=== PATIENT | male | born 1955 | race Caucasian/White ===

== ENCOUNTER → 2017-08-14 | Outpatient (CLI) | payer BC ==
--- NOTE | 2017-08-14 15:01 | MR ---
EXAMINATION TYPE: MR lumbar spine wo con DATE OF EXAM: 08/14/2017 COMPARISON: NONE HISTORY: 62-year-old male back pain TECHNIQUE: Multiplanar, multisequence images of the lumbar spine were acquired. Findings: Vertebral body heights are preserved and alignment is maintained. Variable mild to moderate intervertebral disc desiccation throughout. Mild disc space narrowing L4-L5 and L5-S1 with bulging discs. There is a posterior annular fissure at L5-S1. Facet arthropathy lower lumbar spine. Conus medullaris is normal. No suspicious bone marrow replacement. At T12-L1, no canal or foraminal stenosis. At L1-L2, no canal or foraminal stenosis. At L2-L3, there is mild diffuse disc bulge without significant canal or foraminal stenosis. At L3-L4, no significant canal or foraminal stenosis. At L4-L5, there is mild diffuse disc bulge with facet degenerative change. There is minimal inferior neural foraminal narrowing on the right. No spinal canal stenosis. Disc material closely approaches t he traversing left L5 nerve root. At L5-S1, there is diffuse disc bulge with superimposed right base central disc protrusion and facet degenerative change. Posterior annular fissure is present. This material may abut the traversing righ t S1 nerve root and closely approaches the traversing left S1 nerve root. Changes result in mild to m oderate left and mild right neuroforaminal stenosis. No spinal canal stenosis. No prevertebral or paravertebral soft tissue abnormality. IMPRESSION: 1. [id number] degenerative disc disease. Additional facet arthropathy lower lumbar spine. There is a posterior annular fissure at L5-S1. 2. At L4-L5, disc material closely approaches the traversing left L5 nerve root. 3. At L5-S1, disc material may abut the traversing right S1 nerve root and closely approaches the tra versing left S1 nerve root. There is mild to moderate left neuroforaminal stenosis at this level. 4. No canal compromise.
== END | disposition home or self-care (01) ==
LOC: RADMRIMAIN 12:54
PROVIDERS: ATTEND Family Medicine
DX: M99.73 Connective tissue and disc stenosis of intervertebral foramina of lumbar region (principal); M51.36 Other intervertebral disc degeneration, lumbar region; M46.96 Unspecified inflammatory spondylopathy, lumbar region
CPT/HCPCS: 72148

== ENCOUNTER → 2017-08-26 | Outpatient (CLI) | payer BC ==
[2017-08-26 15:18] LABS: Basophils % (A) 0 %; Eosinophils # (A) 0.3 k/uL (0-0.7); Eosinophils % (A) 3 %; HCT 47.3 % (39.0-53.0); HGB 15.4 gm/dL (13.0-17.5); Lymphocytes % (A) 35 %; MCH 30.3 pg (25.0-35.0); MCHC 32.6 g/dL (31.0-37.0); MCV 92.9 fL (80.0-100.0); Mean Platelet Volume 7.6; Monocytes # (A) 0.5 k/uL (0-1.0); Monocytes % (A) 6 %; Neutrophils # (A) 4.8 k/uL (1.3-7.7); Neutrophils % (A) 55 %; Platelet Count 252 k/uL (150-450); RBC 5.09 m/uL (4.30-5.90); WBC 8.6 k/uL (3.8-10.6)
[2017-08-26 15:20] LABS: Appearance,Urine Clear (Clear); Bilirubin,Urine Negative (Negative); Blood,Urine Negative (Negative); Color,Urine Colorless; Glucose,Urine (UA) 4+ (Negative); Ketones,Urine Negative (Negative); Leukocyte Esterase,Urine Negative (Negative); Protein,Urine Negative (Negative); Specific Gravity,Urine 1.001 (1.001-1.035); Urobilinogen,Urine <2.0 mg/dL (<2.0)
[2017-08-26 15:26] LABS: INR 0.9 (<1.2); Partial Thromboplastin Time 22.4 sec (22.0-30.0); Prothrombin Time 9.4 sec (9.0-12.0)
[2017-08-26 15:39] LABS: Anion Gap 12 mmol/L; Blood Urea Nitrogen 11 mg/dL (9-20); Carbon Dioxide 28 mmol/L (22-30); Chloride 98 mmol/L (98-107); Glucose 279 mg/dL (74-99); Potassium 4.7 mmol/L (3.5-5.1); Sodium 138 mmol/L (137-145)
== END | disposition home or self-care (01) ==
LOC: LABPAT 14:38
PROVIDERS: ATTEND Surgery
DX: Z01.812 Encounter for preprocedural laboratory examination (principal); I70.213 Atherosclerosis of native arteries of extremities with intermittent claudication, bilateral legs
CPT/HCPCS: 80051; 81003; 82565; 82947; 84520; 85025; 85610; 85730

== ENCOUNTER → 2017-09-09 | Day surgery (SDC) | payer BC ==
[2017-09-04 15:49] VITALS: BMI 25.0
[~2017-09-09] MED LIST: ASPIRIN 325 MG TAB PO STA; IODIXANOL 320 MG/ML 100 ML INTRAARTER ONE; LIDOCAINE 2% INJ 20 MG/ML SQ ONE; MIDAZOLAM 2 MG/2 ML VIAL IV ONE; MORPHINE SULFATE 4 MG/ML SYRINGE IV ONE; SODIUM CHLORIDE 0.9% 1,000 ML IV SCH; SODIUM CHLORIDE 0.9% 1,000 ML in EMPTY BAG 1 BAG IV ONE
[2017-09-09] MEDS: INSULIN ASPART 100 UNIT/ML 1 ML 10 ML VIAL SQ SCH ×2 (07:10→09:23)
[2017-09-09 08:48] LABS: Glucose,Whole Blood 254 mg/dL (75-99)
[2017-09-09 09:12] VITALS: TEMP 98
[2017-09-09 09:24] LABS: Glucose,Whole Blood 228 mg/dL (75-99)
[2017-09-09 14:05] VITALS: RESP 20
[2017-09-09 15:29] VITALS: BP 119/70; PULSE 110
--- NOTE | 2017-09-13 06:28 | P.OP ---
Date of Procedure: 09/09/17 Preoperative Diagnosis: Disabling claudication Cr 3 Postoperative Diagnosis: 1. 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 Bilateral anterior tibial artery occlusion Procedure(s) Performed: aortogram with lower extremity runoffs via left common femoral artery and left brachial artery access under ultrasound guidance Implants: none Anesthesia: MAC, local Surgeon: Reed Patiño Estimated Blood Loss (ml): 5 Pathology: none sent Condition: stable Disposition: PACU Indications for Procedure: 62 year-old male who presented to the office with complaints of pain with ambulation. Patient states unable to ambulate more than 100 feet without having increased pain at the hips and lower extremities. He underwent arterial doppler which demonstrated STEPHANIA's of 0.66 bilaterally. He presents today for aortogram with lower extremity angiogram. Operative Findings: Aorta: ledge of calcification noted mid infra-renal aorta causing nearly 100% occlusion. Renal: bilateral renal arteries are patent without significant disease Iliac: left common iliac artery demonstrates significant calcification and stenosis of 60-70%, right common iliac is diseased without significant stenosis. bilateral internal iliac arteries are patent with some mild athersclerotic disease. Femoral: bilateral common, deep and superficial femoral arteries have mild athersclerotic disease without significant stenosis Popliteal: bilateral popliteal arteries are patent without significant disease Tibials: bilateral one vessel runoff to the ankle which is the posterior tibial artery. bilateral anterior tibial arteries are occluded half way down the lower leg after the takeoff. Description of Procedure: After written and informed consent was obtained and all risks, benefits, and complications were described the patient was brought to the casting house laborer and laid in a supine position. The area of the groins were prepped and draped in the usual sterile fashion. Timeout was performed in usual fashion. Utilizing ultrasound the femoral arteries were visualized. The right femoral artery had a weak pulse and therefore access was obtained via the left femoral artery. Utilizing ultrasound and a multipurpose needle the left femoral artery was cannulated. Using Seldinger technique a 5 telugu sheath was placed. We attempted to place a wire in the aorta but encountered difficulty. Retrograde angiogram was performed and demonstrated a focal aortic occlusion. Multiple attempts to cross the area were performed without success and therefore the left arm was prepped and draped for brachial access. Utilizing ultrasound the brachial artery was visualized and then cannulated with a multipurpose needle. A 5 telugu sheath was then placed utilizing Seldinger technique. An .035 glidwire along with a pigtail catheter were then used to place the catheter in the aorta above the area of occlusion. Aortogram was obtained followed by bilateral lower extremity angiograms. Due to the near occlusion multiple views were obtained that demonstrated a severe narrowing around two calcific ledges. A glidewire was able to be passed across the lesion which proved it was not occlusive. All wires and sheaths were removed and pressure was held for hemostasis. The patient tolerated the procedure well.
--- NOTE | 2017-09-13 10:26 | IR ---
Fluoroscopy HISTORY: Peripheral vascular occlusive disease 6.3 minutes fluoroscopy time supplied to the referring clinician. 210 intraoperative C-arm images do cument the procedure. See dictated report from vascular surgery.
== END ==
LOC: CATHCVL 06:26
PROVIDERS: ATTEND Surgery
DX: I70.213 Atherosclerosis of native arteries of extremities with intermittent claudication, bilateral legs (principal); I70.0 Atherosclerosis of aorta; Z79.4 Long term (current) use of insulin; Z79.899 Other long term (current) drug therapy; F17.210 Nicotine dependence, cigarettes, uncomplicated
CPT/HCPCS: 36200; 75625; 75716; C1769 ×4; C1894 ×2; J2001; J2250; J2270; Q9967

== ENCOUNTER → 2017-10-28 | Outpatient (CLI) | payer BC ==
[2017-10-28 16:19] LABS: Appearance,Urine Clear (Clear); Basophils % (A) 0 %; Bilirubin,Urine Negative (Negative); Blood,Urine Negative (Negative); Color,Urine Colorless; Eosinophils # (A) 0.3 k/uL (0-0.7); Eosinophils % (A) 4 %; Glucose,Urine (UA) Negative (Negative); HCT 46.3 % (39.0-53.0); HGB 15.7 gm/dL (13.0-17.5); Ketones,Urine Negative (Negative); Leukocyte Esterase,Urine Negative (Negative); Lymphocytes % (A) 35 %; MCH 30.7 pg (25.0-35.0); MCHC 33.8 g/dL (31.0-37.0); MCV 90.7 fL (80.0-100.0); Monocytes # (A) 0.4 k/uL (0-1.0); Monocytes % (A) 5 %; Neutrophils # (A) 4.8 k/uL (1.3-7.7); Neutrophils % (A) 55 %; Nitrite,Urine Negative (Negative); Platelet Count 257 k/uL (150-450); Protein,Urine Negative (Negative); RDW 13.2 % (11.5-15.5); Specific Gravity,Urine 1.003 (1.001-1.035); Urobilinogen,Urine <2.0 mg/dL (<2.0); WBC 8.8 k/uL (3.8-10.6)
[2017-10-28 16:27] LABS: Partial Thromboplastin Time 22.9 sec (22.0-30.0); Prothrombin Time 9.5 sec (9.0-12.0)
[2017-10-28 16:31] LABS: Anion Gap 15 mmol/L; Blood Urea Nitrogen 14 mg/dL (9-20); Carbon Dioxide 23 mmol/L (22-30); Chloride 102 mmol/L (98-107); Glucose 100 mg/dL (74-99); Potassium 4.4 mmol/L (3.5-5.1); Sodium 140 mmol/L (137-145)
== END | disposition home or self-care (01) ==
LOC: LABPAT 15:54
PROVIDERS: ATTEND Surgery
DX: Z01.812 Encounter for preprocedural laboratory examination (principal); I74.5 Embolism and thrombosis of iliac artery
CPT/HCPCS: 36415; 80051; 81003; 82565; 82947; 84520; 85025; 85610; 85730

== ENCOUNTER → 2017-11-04 | Day surgery (SDC) | payer BC ==
[2017-10-29 09:21] VITALS: BMI 25.8
[~2017-11-04] MED LIST changes: +ASPIRIN 325 MG TAB ONE; -ASPIRIN 325 MG TAB PO STA; -IODIXANOL 320 MG/ML 100 ML INTRAARTER ONE; +LACTATED RINGERS 1,000 ML IV SCH; +LIDOCAINE 1% 20 ML VIAL (10MG/ML) FOR IV START INTRADERMA PRN; -LIDOCAINE 2% INJ 20 MG/ML SQ ONE; -MIDAZOLAM 2 MG/2 ML VIAL IV ONE; +MIDAZOLAM 2 MG/2 ML VIAL ONE; -MORPHINE SULFATE 4 MG/ML SYRINGE IV ONE; +ONDANSETRON 4 MG/2 ML VIAL IVP PRN; -SODIUM CHLORIDE 0.9% 1,000 ML IV SCH; +fentaNYL (PF) 50 MCG/ML 2 ML AMP IV PRN
[2017-11-04 11:27] VITALS: BP 123/72; PULSE 97; TEMP 97.7
[2017-11-04 11:34] LABS: Glucose,Whole Blood 101 mg/dL (75-99)
== END ==
LOC: UNDOADMIN 10:49 → CATHCVL 10:49 → 2ORMAIN 10:49 → EDSTATUS 12:30
PROVIDERS: ATTEND Surgery
DX: I74.5 Embolism and thrombosis of iliac artery (principal); Z53.8 Procedure and treatment not carried out for other reasons; Z91.041 Radiographic dye allergy status; I10 Essential (primary) hypertension; E78.5 Hyperlipidemia, unspecified; E11.9 Type 2 diabetes mellitus without complications; Z79.4 Long term (current) use of insulin; F17.210 Nicotine dependence, cigarettes, uncomplicated; Z79.891 Long term (current) use of opiate analgesic; Z79.899 Other long term (current) drug therapy
CPT/HCPCS: 86900 ×2; 86901 ×2; 86850 ×2; J2250; J3010

== ENCOUNTER 2017-11-12 08:24 | Inpatient (IN) | payer BC ==
[2017-11-10 12:00] VITALS: BMI 25.3
[~2017-11-12 08:24] MED LIST changes: +ALPRAZolam 0.25 MG TAB PO PRN; -ASPIRIN 325 MG TAB ONE; +ASPIRIN 325 MG TAB PO STA; +DEXAMETHASONE SOD PHOSPHATE 10 MG/ML 1 ML VIAL IV ONE; -MIDAZOLAM 2 MG/2 ML VIAL ONE; +MORPHINE SULFATE 4 MG/ML SYRINGE IV PRN; +ONDANSETRON 4 MG/2 ML VIAL IVP ONE; -ONDANSETRON 4 MG/2 ML VIAL IVP PRN; +SCOPOLAMINE 1.5MG/72HR PATCH TRANSDERM ONE; -fentaNYL (PF) 50 MCG/ML 2 ML AMP IV PRN
[2017-11-12] MEDS ORDERED: DEXTROSE 50%-WATER 50 ML SYRINGE IVP STA (09:06)
[2017-11-12 09:23] LABS: Glucose,Whole Blood 127 mg/dL (75-99)
[2017-11-12 09:23] LABS: Glucose,Whole Blood 60 mg/dL (75-99)
[2017-11-12] MEDS ORDERED: MIDAZOLAM 2 MG/2 ML VIAL IVP ONE (09:41)
[2017-11-12] MEDS ORDERED: fentaNYL (PF) 50 MCG/ML 2 ML AMP IVP ONE (09:42)
[2017-11-12] MEDS ORDERED: diphenhydrAMINE 50 MG/ML 1 ML VIAL IVP STA (10:04)
[2017-11-12] MEDS ORDERED: methylPREDNISolone SOD SUCCI 125 MG/2 ML VIAL IV STA (10:04)
[2017-11-12] MEDS ORDERED: PROTAMINE SULFATE 10 MG/ML 5 ML VIAL IV ONE (10:12)
[2017-11-12] MEDS ORDERED: PROPOFOL 10 MG/ML 20 ML VIAL IV ONE (10:12)
[2017-11-12] MEDS ORDERED: SUCCINYLCHOLINE CHLORIDE 100 MG/5 ML SYR IV ONE (10:12)
[2017-11-12] MEDS ORDERED: HEPARIN SODIUM,PORCINE 5,000 UNIT/ML 1 ML VIAL ONE (10:12)
[2017-11-12] MEDS ORDERED: fentaNYL (PF) 50 MCG/ML 2 ML AMP ONE (10:12)
[2017-11-12] MEDS ORDERED: ePHEDrine SULFATE/0.9% NACL/PF 50 MG/5 ML SYRINGE IV ONE (10:12)
[2017-11-12] MEDS ORDERED: PHENYLEPHRINE-0.9% NACL SYG 1 MG/10 ML SYRINGE ONE (10:12)
[2017-11-12] MEDS ORDERED: MIDAZOLAM 2 MG/2 ML VIAL ONE (10:12)
[2017-11-12 10:34] LABS: Glucose,Whole Blood 84 mg/dL (75-99)
[2017-11-12] MEDS ORDERED: LIDOCAINE 2% INJ 20 MG/ML SQ ONE (10:46)
[2017-11-12] MEDS ORDERED: IOPAMIDOL-250 100ML BTL INTRAARTER ONE (12:56)
[2017-11-12] MEDS ORDERED: HYDROcodone/APAP 5-325MG 1 EACH TAB PO PRN (13:15)
[2017-11-12 13:55] LABS: Glucose,Whole Blood 76 mg/dL (75-99)
[2017-11-12] MEDS: SODIUM CHLORIDE 0.9% 1,000 ML IV SCH (14:50)
[2017-11-12 15:11] LABS: Basophils % (A) 0 %; Eosinophils # (A) 0.1 k/uL (0-0.7); Eosinophils % (A) 0 %; HCT 41.9 % (39.0-53.0); HGB 13.5 gm/dL (13.0-17.5); Lymphocytes % (A) 7 %; MCH 30.6 pg (25.0-35.0); MCHC 32.2 g/dL (31.0-37.0); MCV 94.9 fL (80.0-100.0); Mean Platelet Volume 6.8; Monocytes # (A) 0.2 k/uL (0-1.0); Monocytes % (A) 1 %; Neutrophils # (A) 13.8 k/uL (1.3-7.7); Neutrophils % (A) 91 %; Platelet Count 196 k/uL (150-450); RBC 4.42 m/uL (4.30-5.90); RDW 13.4 % (11.5-15.5); WBC 15.1 k/uL (3.8-10.6)
[2017-11-12 15:15] LABS: Anion Gap 13 mmol/L; Blood Urea Nitrogen 14 mg/dL (9-20); Carbon Dioxide 22 mmol/L (22-30); Chloride 109 mmol/L (98-107); Glucose 76 mg/dL (74-99); Potassium 4.2 mmol/L (3.5-5.1); Sodium 144 mmol/L (137-145)
[2017-11-12 17:23] LABS: Glucose,Whole Blood 79 mg/dL (75-99)
[2017-11-12] MEDS ORDERED: HEPARIN SODIUM,PORCINE 5,000 UNIT/ML 1 ML VIAL IV PRN (18:30)
[2017-11-12] MEDS ORDERED: HEPARIN SODIUM,PORCINE/D5W PMX 25,000 UNIT in DEXTROSE/WATER 1 500ML.BAG IV SCH (18:30)
[2017-11-12] MEDS ORDERED: HEPARIN SODIUM,PORCINE 5,000 UNIT/ML 1 ML VIAL IV ONE (18:30)
[2017-11-12 18:51] LABS: Basophils % (A) 0 %; Eosinophils # (A) 0.1 k/uL (0-0.7); Eosinophils % (A) 1 %; HGB 13.4 gm/dL (13.0-17.5); Lymphocytes # (A) 0.7 k/uL (1.0-4.8); Lymphocytes % (A) 5 %; MCH 30.8 pg (25.0-35.0); MCHC 33.5 g/dL (31.0-37.0); MCV 92.1 fL (80.0-100.0); Mean Platelet Volume 7.3; Monocytes # (A) 0.2 k/uL (0-1.0); Monocytes % (A) 2 %; Neutrophils # (A) 12.6 k/uL (1.3-7.7); Neutrophils % (A) 92 %; Platelet Count 222 k/uL (150-450); RBC 4.34 m/uL (4.30-5.90); RDW 13.4 % (11.5-15.5); WBC 13.6 k/uL (3.8-10.6)
[2017-11-12 19:30] LABS: Partial Thromboplastin Time 22.6 sec (22.0-30.0); Prothrombin Time 9.6 sec (9.0-12.0)
[2017-11-12 20:44] LABS: Glucose,Whole Blood 143 mg/dL (75-99)
[2017-11-12] MEDS: INSULIN ASPART 100 UNIT/ML 1 ML 10 ML VIAL SQ SCH (21:00)
[2017-11-12] MEDS ORDERED: ASPIRIN 81 MG PO SCH (21:00)
[2017-11-12] MEDS ORDERED: INSULIN DETEMIR 100 UNIT/ML 10 ML VIAL SQ SCH (21:00)
[2017-11-12] MEDS ORDERED: LISINOPRIL 2.5 MG TAB PO SCH (21:00)
[2017-11-12] MEDS ORDERED: amLODIPine 5 MG TAB PO SCH (21:00)
[2017-11-12] MEDS ORDERED: PRAVASTATIN SODIUM 40 MG TAB PO SCH (21:00)
--- NOTE | 2017-11-12 22:09 | P.OP ---
Date of Procedure: 11/12/17 Preoperative Diagnosis: 1. Aortic Occlusive Disease 2. Lower extremity claudication with rest pain [place] classification 4 Postoperative Diagnosis: Same Procedure(s) Performed: Endovascular Aortic stent graft with AFX 2 device Implants: Endologix AFX 2 aortic device Anesthesia: LJA Surgeon: Reed Patiño Estimated Blood Loss (ml): 200 Pathology: none sent Condition: stable Disposition: ICU Indications for Procedure: 62 year-old gentleman who initially presented to the office with complaints of lower extremity pain both at the thighs extending down to his feet. He states having pain at night in his calves. He states only being able to ambulate 100 feet without pain and fatigue in his legs. He underwent angiogram which showed an aortic occlusive disease with stenosis of 90% and left common iliac artery athersclerotic disease. He presents today for aortic stent graft. Operative Findings: Aortic stenosis of >90% and severe athersclerotic disease of bilateral common iliac arteries. Description of Procedure: After written and informed consent was obtained from the patient and all risks, benefits, and complications were described the patient was brought to the labor relations worker and laid in a supine position. The area of the groins were prepped and draped in the usual sterile fashion after appropriate anesthesia was performed per the anesthesiologist. A timeout was done in usual fashion with all parties in agreement. Antibiotics were given prior to the procedure. Utilizing ultrasound bilateral common femoral arteries were accessed and using Seldinger technique two 6F sheaths were placed. A retrograde angiogram was obtained and using an .035 glidewire the aortic lesion was crossed. Once crossed Proglide closure device was then placed in the right femoral artery in usual fashion followed by an 8F sheath. A stiff Lunderquist wire was then place across the lesion. The left femoral sheath was then replaced with a long 7F sheath. The patient was given heparin and followed with serial ACTs. The Endologix main body sheath was then placed through the right femoral artery after the 8F sheath was removed. A snare was placed up the right femoral sheath. The main body AFX 2 deployment device was then placed up the right femoral sheath. Multiple attempts to snare the wire from the AFX device were not successful and therefore an RBI catheter was used to go up and over and a wire was snared at the left iliac artery and brought out the left femoral sheath in a body floss technique. A catheter was then placed over the wire and the up and over wire from the AFX 2 device was threaded through the sheath. Once this was completed the AFX 2 stent graft was deployed in normal fashion across the lesion. After completion balloon angioplasty was performed on the limbs and main body with a Coda balloon and 8x40mm balloons. Pigtail catheter was then placed and final angiogram was performed with resolution of the aortic lesion and brisk flow to both lower extremities. All catheters were removed and glidewires were left in place. Proglide sutures were secured for the right femoral artery and an 8F angioseal was placed in the left femoral artery for hemostasis. Hemostasis was achieved and patient was multiphasic signals at bilateral DP/PT. Palpable femoral pulses were noted bilaterally.
--- NOTE | 2017-11-12 22:14 | P.PN ---
Progress Note - Text Progress Note Date: 11/12/17 Patient was seen and examined at 6:00 pm. He was doing well. Stated having some pain at his right calf which is unchanged from prior to the surgery. He has no other complaints. Nursing staff states unable to obtain signals right DP /PT with doppler. Vitals are stable. He is moving feet well without pain. Upon examination patient has palpable femoral, popliteal pulses bilaterally. There is palpable PT pulse on the left. Multiphasic doppler signal at the right PT. Due to the size of the sheath and potential for thrombosis patient was placed on a heparin drip. We will continue to monitor closely. He is to continue to move his feet and when able to get out of bed he is to ambulate with assist.
[2017-11-13 05:16] LABS: Basophils % (A) 0 %; Eosinophils # (A) 0.1 k/uL (0-0.7); Eosinophils % (A) 1 %; HCT 37.3 % (39.0-53.0); HGB 12.4 gm/dL (13.0-17.5); Lymphocytes % (A) 14 %; MCH 30.7 pg (25.0-35.0); MCHC 33.2 g/dL (31.0-37.0); MCV 92.4 fL (80.0-100.0); Mean Platelet Volume 7.5; Monocytes # (A) 0.7 k/uL (0-1.0); Monocytes % (A) 5 %; Neutrophils # (A) 11.5 k/uL (1.3-7.7); Neutrophils % (A) 80 %; Platelet Count 222 k/uL (150-450); RBC 4.04 m/uL (4.30-5.90); RDW 13.3 % (11.5-15.5); WBC 14.4 k/uL (3.8-10.6)
[2017-11-13 06:46] LABS: Anion Gap 10 mmol/L; Blood Urea Nitrogen 15 mg/dL (9-20); Calcium 8.5 mg/dL (8.4-10.2); Carbon Dioxide 22 mmol/L (22-30); Chloride 107 mmol/L (98-107); Glucose 155 mg/dL (74-99); Magnesium 1.9 mg/dL (1.6-2.3); Potassium 4.6 mmol/L (3.5-5.1); Sodium 139 mmol/L (137-145)
[2017-11-13 07:15] LABS: Glucose,Whole Blood 155 mg/dL (75-99)
--- NOTE | 2017-11-13 07:48 | P.CONS ---
History of Present Illness - Reason for Consult Consult date: 11/13/17 Requesting physician: Reed Patiño - Chief Complaint Postop medical management. - History of Present Illness This is a continue progress on a 62-year-old white male who has known history of insulin dependent diabetes and PAD who is now postop day #1 aortofemoral stent. The patient is doing quite well. Minimal pain is noted. No significant nausea or vomiting. We had a long discussion regarding tobacco cessation. Otherwise, he has an underlying history of hypertension which is fairly stable. We reiterated good blood glucose control at home. Review of Systems Constitutional: Denies chills, Denies fever Eyes: denies blurred vision, denies pain Ears, nose, mouth and throat: Denies headache, Denies sore throat Cardiovascular: Reports claudication, Denies chest pain, Denies shortness of breath Respiratory: Denies cough Gastrointestinal: Denies abdominal pain, Denies diarrhea, Denies nausea, Denies vomiting Past Medical History Past Medical History: Diabetes Mellitus, Hyperlipidemia, Hypertension, Osteoarthritis (OA), Renal Disease, Vascular Disorder Additional Past Medical History / Comment(s): back pain,numbness & pain legs,hx decreased kidney function History of Any Multi-Drug Resistant Organisms: None Reported Past Surgical History: Breast Surgery, Heart Catheterization Additional Past Surgical History / Comment(s): lump removed from left breast 2017,aortogram Past Anesthesia/Blood Transfusion Reactions: No Reported Reaction Smoking Status: Current every day smoker - Past Family History Father Family Medical History: Cancer Medications and Allergies Home Medications Medication Instructions Recorded Confirmed Type Aspirin 81 mg PO HS 09/04/17 11/12/17 History HYDROcodone/APAP 5-325MG [[place] 1 tab PO Q6HR PRN 09/04/17 11/12/17 History 5-325] Insulin Glargine [Lantus] 60 unit SQ HS 09/04/17 11/12/17 History Lisinopril [Zestril] 2.5 mg PO HS 09/04/17 11/12/17 History Metaxalone [Skelaxin] 800 mg PO TID PRN 09/04/17 11/12/17 History Simvastatin [Zocor] 20 mg PO HS 09/04/17 11/12/17 History amLODIPine [Norvasc] 5 mg PO HS 09/04/17 11/12/17 History Allergies Allergy/AdvReac Type Severity Reaction Status Date / Time Iodinated Contrast- Oral and Allergy flushed & Verified 11/12/17 13:26 IV Dye red skin, nausea iodine Allergy Nausea, Verified 11/12/17 13:26 flujsed and red skin Physical Exam Vitals: Vital Signs Temp Pulse Resp BP BP BP Pulse Ox 11/13/17 07:00 99 12 136/72 95 11/13/17 06:00 88 13 113/61 94 L 11/13/17 05:00 97.9 F 94 13 95/53 95 11/13/17 04:00 96 12 97 11/13/17 03:00 95 11 L 97/58 95 11/13/17 02:00 102 H 14 123/69 95 11/13/17 01:30 101 H 14 121/77 95 11/13/17 01:00 96 10 L 102/62 97 11/13/17 00:30 102 H 13 98/53 95 11/13/17 00:00 97.4 F L 92 13 105/65 93 L 11/12/17 23:30 94 11 L 106/62 94 L 11/12/17 23:27 94 12 106/62 94 L 11/12/17 23:00 101 H 12 105/66 94 L 11/12/17 22:30 103 H 12 110/60 94 L 11/12/17 22:00 101 H 14 106/59 95 11/12/17 21:30 103 H 13 118/71 93 L 11/12/17 21:00 105 H 16 149/77 94 L 11/12/17 20:30 100 18 116/69 94 L 11/12/17 20:00 97.8 F 101 H 12 118/62 94 L 11/12/17 19:30 115 H 26 H 126/75 11/12/17 19:00 104 H 19 125/74 93 L 11/12/17 18:30 107 H 20 129/75 95 11/12/17 18:00 105 H 12 120/78 95 11/12/17 17:30 100 12 123/74 95 11/12/17 17:00 97 12 125/75 95 11/12/17 16:30 100 12 115/79 94 L 11/12/17 16:00 97.4 F L 106 H 16 112/72 94 L 11/12/17 15:30 103 H 12 113/69 94 L 11/12/17 15:00 93 12 118/72 96 11/12/17 14:45 101 H 14 108/66 98 11/12/17 14:30 104 H 15 100/65 99 11/12/17 14:15 111 H 11 L 82/61 99 11/12/17 14:00 94.0 F L 97 12 98 11/12/17 13:45 105 H 11 L 105/69 97 11/12/17 09:05 98.2 F 18 124/76 118/67 98 Intake and Output 11/12/17 11/13/17 11/13/17 22:59 06:59 14:59 Intake Total 1600 767.23 80 Output Total 595 1700 400 Balance 1005 -932.77 -320 Intake: IV 640 640 80 Sodium Chloride 0.9% 1, 640 640 80 000 ml @ 80 mls/hr IV . [id number] KATHY Rx#:[id number] Intake, IV Titration 127.23 Amount Heparin Sodium,Porcine/ 127.23 D5w Pmx 25,000 unit In Dextrose/Water 1 500ml. bag @ 12 UNITS/KG/HR 17. 63 mls/hr IV .Q24H KATHY Rx #:[id number] Oral 960 Output: Urine 595 1700 400 Other: Voiding Method Urinal Urinal # Voids 0 0 1 Weight 74.5 kg ABP, PAP, CO, CI - Last 8 Hours Arterial Blood Pressure 139/64 Arterial Blood Pressure 114/48 Arterial Blood Pressure 111/56 Arterial Blood Pressure 115/57 Arterial Blood Pressure 119/50 Arterial Blood Pressure 123/60 Arterial Blood Pressure 115/59 Arterial Blood Pressure 111/47 Arterial Blood Pressure 99/51 Arterial Blood Pressure 107/49 - Constitutional General appearance: no acute distress - EENT Eyes: EOMI - Neck Neck: no lymphadenopathy - Respiratory Respiratory: bilateral: CTA - Cardiovascular Rhythm: regular Heart sounds: normal: S1, S2 Abnormal Heart Sounds: no S3 Gallop - Gastrointestinal General gastrointestinal: soft, no tenderness - Integumentary Integumentary: no cellulitis - Neurologic Neurologic: CNII-XII intact Results CBC & Chem 7: 11/13/17 05:10 11/13/17 05:10 Labs: Abnormal Lab Results - Last 24 Hours (Table) 11/12/17 11/12/17 11/12/17 Range/Units 08:54 09:13 13:59 WBC 15.1 H (3.8-10.6) k/uL RBC (4.30-5.90) m/uL Hgb (13.0-17.5) gm/dL Hct (39.0-53.0) % Neutrophils # 13.8 H (1.3-7.7) k/uL Lymphocytes # (1.0-4.8) k/uL APTT (22.0-30.0) sec Chloride (98-107) mmol/L Glucose (74-99) mg/dL POC Glucose (mg/dL) 60 L 127 H (75-99) mg/dL Calcium (8.4-10.2) mg/dL 11/12/17 11/12/17 11/12/17 Range/Units 13:59 18:45 20:42 WBC 13.6 H (3.8-10.6) k/uL RBC (4.30-5.90) m/uL Hgb (13.0-17.5) gm/dL Hct (39.0-53.0) % Neutrophils # 12.6 H (1.3-7.7) k/uL Lymphocytes # 0.7 L (1.0-4.8) k/uL APTT (22.0-30.0) sec Chloride 109 H (98-107) mmol/L Glucose (74-99) mg/dL POC Glucose (mg/dL) 143 H (75-99) mg/dL Calcium 8.0 L (8.4-10.2) mg/dL 11/13/17 11/13/17 11/13/17 Range/Units 01:20 05:10 05:10 WBC 14.4 H (3.8-10.6) k/uL RBC 4.04 L (4.30-5.90) m/uL Hgb 12.4 L (13.0-17.5) gm/dL Hct 37.3 L (39.0-53.0) % Neutrophils # 11.5 H (1.3-7.7) k/uL Lymphocytes # (1.0-4.8) k/uL APTT 37.0 H (22.0-30.0) sec Chloride (98-107) mmol/L Glucose 155 H (74-99) mg/dL POC Glucose (mg/dL) (75-99) mg/dL Calcium (8.4-10.2) mg/dL 11/13/17 Range/Units 07:14 WBC (3.8-10.6) k/uL RBC (4.30-5.90) m/uL Hgb (13.0-17.5) gm/dL Hct (39.0-53.0) % Neutrophils # (1.3-7.7) k/uL Lymphocytes # (1.0-4.8) k/uL APTT (22.0-30.0) sec Chloride (98-107) mmol/L Glucose (74-99) mg/dL POC Glucose (mg/dL) 155 H (75-99) mg/dL Calcium (8.4-10.2) mg/dL Assessment and Plan (1) PAD (peripheral artery disease) Current Visit: Yes Status: Acute Code(s): I73.9 - PERIPHERAL VASCULAR DISEASE, UNSPECIFIED SNOMED Code(s): 622655206 (2) Diabetes Current Visit: Yes Status: Chronic Code(s): E11.9 - TYPE 2 DIABETES MELLITUS WITHOUT COMPLICATIONS SNOMED Code(s): 37015288 (3) Tobacco abuse Current Visit: Yes Status: Chronic Code(s): Z72.0 - TOBACCO USE SNOMED Code(s): 913222576 (4) Cigarette nicotine dependence Current Visit: Yes Status: Chronic Code(s): F17.210 - NICOTINE DEPENDENCE, CIGARETTES, UNCOMPLICATED SNOMED Code(s): 58937918 (5) Claudication of both lower extremities Current Visit: Yes Status: Acute Code(s): I73.9 - PERIPHERAL VASCULAR DISEASE, UNSPECIFIED SNOMED Code(s): 23566955 Plan: Continue to follow postop medical management. Sliding scale as necessary. Reconcile home medications. Anticipate discharge once cleared by thoracic vascular surgery. Prognosis is excellent.
[2017-11-13] MEDS: SODIUM CHLORIDE 0.9% 1,000 ML IV SCH ×2 (08:25→15:34)
[2017-11-13] MEDS: INSULIN ASPART 100 UNIT/ML 1 ML 10 ML VIAL SQ SCH ×2 (08:25→12:12)
[2017-11-13] MEDS ORDERED: ASPIRIN 81 MG PO SCH (09:00)
--- NOTE | 2017-11-13 09:20 | PN ---
PROGRESS NOTE This is a 62-year-old gentleman who had aortic stenosis. Patient went for endo stent graft for aortic stenosis by Reed Patiño. Patient was in the intensive care unit. There was some concern of peripheral circulation. Patient is on heparin. This morning, patient was seen. His vital signs stable. Femoral pulses are palpable bilateral. Posterior tibial by the Doppler. Both feet are warm. Capillary refill decent. PLAN: Plan is discussed with Dr. Patiño. Patient wants go home. We put him on Plavix 75 mg q. daily. He will follow up in Dr. Patiño's office on Friday. MMODL / IJN: [id number] /
[2017-11-13] MEDS ORDERED: CLOPIDOGREL 75 MG TAB PO SCH (10:30)
[2017-11-13 12:03] VITALS: TEMP 98
[2017-11-13 12:03] LABS: Glucose,Whole Blood 210 mg/dL (75-99)
[2017-11-13 13:02] VITALS: RESP 20
--- NOTE | 2017-11-13 14:09 | IR ---
Fluoroscopy HISTORY: Peripheral vascular occlusive disease, aortic stenosis 41.8 minutes fluoroscopy time supplied to the referring clinician. 1570 intraoperative C-arm images document the procedure. See dictated report from vascular surgery.
[2017-11-13 15:33] VITALS: BP 146/77; PULSE 95
--- NOTE | 2017-11-13 15:52 | P.PN ---
Progress Note - Text Progress Note Date: 11/13/17 Subjective: Patient has no complaints at this time. Denies pain or swelling. Objective: Vital signs stable. Afebrile. Color of both lower extremities is the same. Slightly cool. Bounding posterior tibial pulse on the left. Pulses not palpable on the right but foot is identical in color and temperature. Femoral pulse present. Assessment: Patient is recovered nicely from his aortic stent. No no obvious complications. Plan: Discharge instructions reviewed. Patient will follow-up with Dr. Patiño about a week. He is instructed to avoid lifting and is instructed to abstain from smoking.
[2017-11-13] MEDS ORDERED: ATORVASTATIN 10 MG TAB PO SCH (21:00)
--- NOTE | 2017-11-18 08:40 | P.DS ---
Providers Date of admission: 11/12/17 08:24 Expected date of discharge: 11/13/17 Attending physician: Reed Patiño DO Consults: 11/12/17 13:20 Consult Physician Routine Consulting Provider: Sid Farrell Consult Reason/Comments: medical managment Do you want consulting provider notified?: Yes Primary care physician: Sid Farrell Hospital Course: Patient underwent aortic stent graft procedure for aortic stenosis and was admitted to the hospital. He did well over the next couple days without incidence. He was tolerating a diet, ambulating and his pain was controlled and deemed stable for discharge on 11/13/17. Procedures: Endovascular aortic stent graft Patient Condition at Discharge: Good Plan - Discharge Summary Discharge Rx Participant: Yes New Discharge Prescriptions: New Clopidogrel [Plavix] 75 mg PO DAILY #30 tab Continue Insulin Glargine [Lantus] 60 unit SQ HS Aspirin 81 mg PO HS amLODIPine [Norvasc] 5 mg PO HS Simvastatin [Zocor] 20 mg PO HS Metaxalone [Skelaxin] 800 mg PO TID PRN PRN Reason: Muscle Spasm Lisinopril [Zestril] 2.5 mg PO HS HYDROcodone/APAP 5-325MG [[place] 5-325] 1 tab PO Q6HR PRN PRN Reason: Pain Discharge Medication List Aspirin 81 mg PO HS 09/04/17 [History] HYDROcodone/APAP 5-325MG [[place] 5-325] 1 tab PO Q6HR PRN 09/04/17 [History] Insulin Glargine [Lantus] 60 unit SQ HS 09/04/17 [History] Lisinopril [Zestril] 2.5 mg PO HS 09/04/17 [History] Metaxalone [Skelaxin] 800 mg PO TID PRN 09/04/17 [History] Simvastatin [Zocor] 20 mg PO HS 09/04/17 [History] amLODIPine [Norvasc] 5 mg PO HS 09/04/17 [History] Clopidogrel [Plavix] 75 mg PO DAILY #30 tab 11/13/17 [Rx] Follow up Appointment(s)/Referral(s): Reed Patiño DO [STAFF PHYSICIAN] - 11/18/17 1:30 pm Sid Farrell MD [Primary Care Provider] - 11/24/17 3:20 pm Patient Instructions/Handouts: *Surgery [facility] - After Heart Catheterization - Guest Experience Captain Instructions, Coronary Artery Disease (DC), Carotid Artery Disease (DC), Type 2 Diabetes in Adults (DC) Discharge Disposition: HOME SELF-CARE
--- NOTE | 2017-11-18 08:48 | P.HPIHPCON ---
History of Present Illness H&P Date: 11/12/17 Chief Complaint: bilateral lower extremity claudication 62 year old male with history of lower extremity pain with ambulation found to have aortic stenosis of approximately 90% presents today for endovascular aortic stent grafting. Patient states unable to ambulate more than 100 feet without significant thigh and calf pain. Arterial doppler demonstrated STEPHANIA's of 0.66 bilaterally. Consent for Procedure: I have explained the operation/procedure to the patient, including the risks, benefits, side effects, alternative therapies (including not receiving the proposed treatment or service), the likelihood of the patient achieving his/her goals, and potential recuperation problems for the procedure/sedation/analgesia , as well as any blood products, if indicated. I also explained to the patient the risks, benefits and side effects of the alternatives, as well as the risks related to not receiving the proposed procedure, care, treatment, or services. - Review of Systems Comment: all systems reviewed and are negative unless mentioned in the PMH or HPI. Past Medical History Past Medical History: Diabetes Mellitus, Hyperlipidemia, Hypertension, Osteoarthritis (OA), Renal Disease, Vascular Disorder Additional Past Medical History / Comment(s): back pain,numbness & pain legs,hx decreased kidney function History of Any Multi-Drug Resistant Organisms: None Reported Past Surgical History: Breast Surgery, Heart Catheterization Additional Past Surgical History / Comment(s): lump removed from left breast 2017,aortogram Past Anesthesia/Blood Transfusion Reactions: No Reported Reaction Smoking Status: Current every day smoker - Past Family History Father Family Medical History: Cancer Medications and Allergies Home Medications Medication Instructions Recorded Confirmed Type Aspirin 81 mg PO HS 09/04/17 11/12/17 History HYDROcodone/APAP 5-325MG [[place] 1 tab PO Q6HR PRN 09/04/17 11/12/17 History 5-325] Insulin Glargine [Lantus] 60 unit SQ HS 09/04/17 11/12/17 History Lisinopril [Zestril] 2.5 mg PO HS 09/04/17 11/12/17 History Metaxalone [Skelaxin] 800 mg PO TID PRN 09/04/17 11/12/17 History Simvastatin [Zocor] 20 mg PO HS 09/04/17 11/12/17 History amLODIPine [Norvasc] 5 mg PO HS 09/04/17 11/12/17 History Clopidogrel [Plavix] 75 mg PO DAILY #30 tab 11/13/17 Rx Allergies Allergy/AdvReac Type Severity Reaction Status Date / Time Iodinated Contrast- Oral and Allergy flushed & Verified 11/12/17 13:26 IV Dye red skin, nausea iodine Allergy Nausea, Verified 11/12/17 13:26 flujsed and red skin Surgical - Exam Vital Signs Temp Resp BP Pulse Ox 98.2 F 18 124/76 98 11/12/17 09:05 11/12/17 09:05 11/12/17 09:05 11/12/17 09:05 palpable left femoral pulse, non palpable right femoral pulse. Monophasic DP/ PT signals bilaterally. Non-palpable DP/PT pulses bilaterally. - General well developed, well nourished, no distress - Eyes PERRL, normal ocular movement - Neck no masses - Respiratory normal expansion - Cardiovascular Rhythm: regular - Abdomen Abdomen: soft, non tender - Integumentary no rash - Neurologic normal coordination - Psychiatric oriented to time, oriented to person, oriented to place Results - Labs 11/13/17 05:10 11/13/17 05:10 Assessment and Plan (1) Claudication of both lower extremities Status: Acute Priority: High Code(s): I73.9 - PERIPHERAL VASCULAR DISEASE, UNSPECIFIED SNOMED Code(s): 72716327 Plan: To labor arbitrator hearing office for aortic stent graft. Time with Patient: Less than 30
== END 2017-11-13 17:29 | disposition home or self-care (01) | DRG 269 ==
LOC: 2ORMAIN 08:24 → 6ICU 13:00
PROVIDERS: ADMIT Surgery; ATTEND Surgery
PROC: 047D3ZZ Dilation of Left Common Iliac Artery, Percutaneous Approach (ICD-10-PCS; 2017-11-12)
PROC: 047C3ZZ Dilation of Right Common Iliac Artery, Percutaneous Approach (ICD-10-PCS; 2017-11-12)
PROC: 04V03E6 (ICD-10-PCS; principal; 2017-11-12 10:12)
DX: I70.0 Atherosclerosis of aorta (principal); E11.51 Type 2 diabetes mellitus with diabetic peripheral angiopathy without gangrene; I70.223 Atherosclerosis of native arteries of extremities with rest pain, bilateral legs; I70.8 Atherosclerosis of other arteries; I10 Essential (primary) hypertension; M54.9 Dorsalgia, unspecified; E78.5 Hyperlipidemia, unspecified; F17.210 Nicotine dependence, cigarettes, uncomplicated; M19.91 Primary osteoarthritis, unspecified site; Z79.82 Long term (current) use of aspirin; Z79.02 Long term (current) use of antithrombotics/antiplatelets; Z79.4 Long term (current) use of insulin; Z79.899 Other long term (current) drug therapy; Z87.448 Personal history of other diseases of urinary system
CPT/HCPCS: 34705; 80048; 83036; 83735; 85025; 85347; 85610; 85730; 86850; 86900; 86901

== ENCOUNTER 2021-11-10 14:29 | Emergency (ER) | payer BC ==
[2021-11-10 14:52] LABS: Glucose,Whole Blood 132 mg/dL (75-99)
[2021-11-10 14:56] VITALS: TEMP 97.1
--- NOTE | 2021-11-10 15:13 | ED ---
General Adult HPI - General Chief complaint: Recheck/Abnormal Lab/Rx Stated complaint: Low BS Time Seen by Provider: 11/10/21 15:01 Source: patient, EMS, RN notes reviewed, old records reviewed Mode of arrival: EMS Limitations: no limitations - History of Present Illness Initial comments: 66 yo male who is in the emergency department for evaluation of hypoglycemia and altered mental status. Patient was found by paramedics have a blood sugar 45. He is a known diabetic and currently on 75 units of Lantus at night. He had not eaten yet this morning. He is not on any short acting insulin, not on any oral hypoglycemic agents. He did not eat at all today this occurred approximately 3 PM. Patient is alert and oriented to time my evaluation without complaints. - Related Data Home Medications Medication Instructions Recorded Confirmed Aspirin 81 mg PO HS 09/04/17 11/12/17 HYDROcodone/APAP 5-325MG [[place] 1 tab PO Q6HR PRN 09/04/17 11/12/17 5-325] Insulin Glargine [Lantus Vial] 60 unit SQ HS 09/04/17 11/12/17 Metaxalone [Skelaxin] 800 mg PO TID PRN 09/04/17 11/12/17 Simvastatin [Zocor] 20 mg PO HS 09/04/17 11/12/17 amLODIPine [Norvasc] 5 mg PO HS 09/04/17 11/12/17 lisinopriL [Zestril] 2.5 mg PO HS 09/04/17 11/12/17 Previous Rx's Medication Instructions Recorded Clopidogrel [Plavix] 75 mg PO DAILY #30 tab 11/13/17 Allergies Allergy/AdvReac Type Severity Reaction Status Date / Time Iodinated Contrast Media Allergy flushed & Verified 11/10/21 14:57 [Iodinated Contrast- Oral red skin, and IV Dye] nausea iodine Allergy Nausea, Verified 11/10/21 14:57 flujsed and red skin Review of Systems ROS Statement: Those systems with pertinent positive or pertinent negative responses have been documented in the HPI. ROS Other: All systems not noted in ROS Statement are negative. Past Medical History Past Medical History: Diabetes Mellitus, Hyperlipidemia, Hypertension, Osteoarthritis (OA), Renal Disease, Vascular Disorder Additional Past Medical History / Comment(s): back pain,numbness & pain legs,hx decreased kidney function History of Any Multi-Drug Resistant Organisms: None Reported Past Surgical History: Breast Surgery, Heart Catheterization Additional Past Surgical History / Comment(s): lump removed from left breast 2017,aortogram Past Anesthesia/Blood Transfusion Reactions: No Reported Reaction Past Psychological History: No Psychological Hx Reported Smoking Status: Former smoker Past Alcohol Use History: Rare Past Drug Use History: None Reported - Past Family History Father Family Medical History: Cancer General Exam Limitations: no limitations General appearance: alert, in no apparent distress Head exam: Present: atraumatic, normocephalic Eye exam: Present: normal appearance, PERRL ENT exam: Present: normal exam Neck exam: Present: normal inspection. Absent: tenderness, meningismus Respiratory exam: Present: normal lung sounds bilaterally. Absent: respiratory distress, wheezes Cardiovascular Exam: Present: regular rate, normal rhythm GI/Abdominal exam: Present: soft. Absent: distended, tenderness Extremities exam: Present: normal inspection, normal capillary refill. Absent: pedal edema Neurological exam: Present: alert, oriented X3, CN II-XII intact. Absent: motor sensory deficit Psychiatric exam: Present: normal affect, normal mood Skin exam: Present: warm, dry, intact. Absent: cyanosis, diaphoretic Course Vital Signs 11/10/21 14:53 Temperature 97.1 F L Pulse Rate 104 H Respiratory 18 Rate Blood Pressure 150/92 O2 Sat by Pulse 96 Oximetry EKG Findings - EKG Comments: EKG Findings:: EKG: Sinus tachycardia, right axis, right bundle-branch block, history of right bundle-branch block, rate of 110, ND interval 189, QRS duration 125, QTC 417, no ST segment elevation. Medical Decision Making - Medical Decision Making 66-year-old male presenting with altered mental status and blood sugar of 45. His mental status returns to normal with IV dextrose given by paramedics. Patient has no complaints in the emergency department. He does admit to not eating today although he cannot remember the majority of the day. His family member states that he was not behaving himself throughout the morning. Likely was hypoglycemic for several hours. He has no focal findings. His stable vitals. Blood sugar trended over several hours. He will reduce his Lantus dose and monitor blood glucose 3 times daily. He will follow-up with his primary care physician. - Lab Data Result diagrams: 11/10/21 15:07 11/10/21 15:07 Lab Results 11/10/21 11/10/21 11/10/21 Range/Units 14:50 15:07 15:07 WBC 11.7 H (3.8-10.6) k/uL RBC 5.48 (4.30-5.90) m/uL Hgb 16.8 (13.0-17.5) gm/dL Hct 51.6 (39.0-53.0) % MCV 94.2 (80.0-100.0) fL MCH 30.7 (25.0-35.0) pg MCHC 32.6 (31.0-37.0) g/dL RDW 13.4 (11.5-15.5) % Plt Count 292 (150-450) k/uL MPV 6.9 Neutrophils % 80 % Lymphocytes % 14 % Monocytes % 4 % Eosinophils % 1 % Basophils % 0 % Neutrophils # 9.3 H (1.3-7.7) k/uL Lymphocytes # 1.7 (1.0-4.8) k/uL Monocytes # 0.4 (0-1.0) k/uL Eosinophils # 0.2 (0-0.7) k/uL Basophils # 0.0 (0-0.2) k/uL Sodium 138 (137-145) mmol/L Potassium 4.0 (3.5-5.1) mmol/L Chloride 103 (98-107) mmol/L Carbon Dioxide 24 (22-30) mmol/L Anion Gap 11 mmol/L BUN 14 (9-20) mg/dL Creatinine 0.71 (0.66-1.25) mg/dL Est GFR (CKD-EPI)AfAm >90 (>60 ml/min/1.73 sqM) Est GFR (CKD-EPI)NonAf >90 (>60 ml/min/1.73 sqM) Glucose 115 H (74-99) mg/dL POC Glucose (mg/dL) 132 H (75-99) mg/dL POC Glu Senior Software Developer ID Belval, Nusrat Calcium 8.8 (8.4-10.2) mg/dL Total Bilirubin 0.5 (0.2-1.3) mg/dL AST 22 (17-59) U/L ALT 19 (4-49) U/L Alkaline Phosphatase 87 (38-126) U/L Total Protein 7.5 (6.3-8.2) g/dL Albumin 4.5 (3.5-5.0) g/dL 11/10/21 11/10/21 Range/Units 16:17 17:23 WBC (3.8-10.6) k/uL RBC (4.30-5.90) m/uL Hgb (13.0-17.5) gm/dL Hct (39.0-53.0) % MCV (80.0-100.0) fL MCH (25.0-35.0) pg MCHC (31.0-37.0) g/dL RDW (11.5-15.5) % Plt Count (150-450) k/uL MPV Neutrophils % % Lymphocytes % % Monocytes % % Eosinophils % % Basophils % % Neutrophils # (1.3-7.7) k/uL Lymphocytes # (1.0-4.8) k/uL Monocytes # (0-1.0) k/uL Eosinophils # (0-0.7) k/uL Basophils # (0-0.2) k/uL Sodium (137-145) mmol/L Potassium (3.5-5.1) mmol/L Chloride (98-107) mmol/L Carbon Dioxide (22-30) mmol/L Anion Gap mmol/L BUN (9-20) mg/dL Creatinine (0.66-1.25) mg/dL Est GFR (CKD-EPI)AfAm (>60 ml/min/1.73 sqM) Est GFR (CKD-EPI)NonAf (>60 ml/min/1.73 sqM) Glucose (74-99) mg/dL POC Glucose (mg/dL) 84 117 H (75-99) mg/dL POC Glu Senior Software Developer [place] Calcium (8.4-10.2) mg/dL Total Bilirubin (0.2-1.3) mg/dL AST (17-59) U/L ALT (4-49) U/L Alkaline Phosphatase (38-126) U/L Total Protein (6.3-8.2) g/dL Albumin (3.5-5.0) g/dL Disposition Clinical Impression: Hypoglycemia Disposition: HOME SELF-CARE Condition: Fair Instructions (If sedation given, give patient instructions): Hypoglycemia in a Person with Diabetes (ED) Is patient prescribed a controlled substance at d/c from ED?: No Referrals: Sid Farrell MD [Primary Care Provider] - 1-2 days Time of Disposition: 17:38
[2021-11-10 15:41] LABS: Basophils % (A) 0 %; Eosinophils # (A) 0.2 k/uL (0-0.7); Eosinophils % (A) 1 %; HCT 51.6 % (39.0-53.0); HGB 16.8 gm/dL (13.0-17.5); Lymphocytes # (A) 1.7 k/uL (1.0-4.8); Lymphocytes % (A) 14 %; MCH 30.7 pg (25.0-35.0); MCHC 32.6 g/dL (31.0-37.0); MCV 94.2 fL (80.0-100.0); Mean Platelet Volume 6.9; Monocytes # (A) 0.4 k/uL (0-1.0); Monocytes % (A) 4 %; Neutrophils # (A) 9.3 k/uL (1.3-7.7); Neutrophils % (A) 80 %; Platelet Count 292 k/uL (150-450); RBC 5.48 m/uL (4.30-5.90); RDW 13.4 % (11.5-15.5); WBC 11.7 k/uL (3.8-10.6)
[2021-11-10 16:01] LABS: ALT 19 U/L (4-49); AST 22 U/L (17-59); African American GFR (CKD) >90 (>60 ml/min/1.73 sqM); Albumin 4.5 g/dL (3.5-5.0); Alkaline Phosphatase 87 U/L (38-126); Anion Gap 11 mmol/L; Blood Urea Nitrogen 14 mg/dL (9-20); Calcium 8.8 mg/dL (8.4-10.2); Carbon Dioxide 24 mmol/L (22-30); Chloride 103 mmol/L (98-107); Glucose 115 mg/dL (74-99); Non-African American GFR(CKD) >90 (>60 ml/min/1.73 sqM); Sodium 138 mmol/L (137-145); Total Bilirubin 0.5 mg/dL (0.2-1.3); Total Protein 7.5 g/dL (6.3-8.2)
[2021-11-10 16:18] LABS: Glucose,Whole Blood 84 mg/dL (75-99)
[2021-11-10] MEDS ORDERED: ONDANSETRON 4 MG/2 ML VIAL IVP STA (16:30)
[2021-11-10] MEDS ORDERED: SODIUM CHLORIDE 0.9% 500 ML 500 ML IV ONE (16:43)
[2021-11-10 17:25] LABS: Glucose,Whole Blood 117 mg/dL (75-99)
[2021-11-10 17:50] VITALS: BP 130/96; PULSE 115; RESP 16
== END 2021-11-10 17:50 | disposition home or self-care (01) ==
LOC: EC 14:29
DX: E16.2 Hypoglycemia, unspecified (principal); I10 Essential (primary) hypertension; E78.5 Hyperlipidemia, unspecified; Z87.891 Personal history of nicotine dependence
CPT/HCPCS: 36415; 93005; 80053; 85025; 99285; 96374; J2405

== ENCOUNTER → 2024-01-06 | Outpatient (CLI) | payer BC ==
--- NOTE | 2024-01-09 04:49 | MR ---
EXAMINATION TYPE: MR shoulder LT wo con DATE OF EXAM: 01/06/2024 COMPARISON: Outside left shoulder x-ray December 30, 2023 HISTORY: Left shoulder pain and difficulty raising arm x9 months TECHNIQUE: Multiplanar, multisequence imaging of the left shoulder is performed without contrast. FINDINGS: Rotator Cuff: Increased signal along the inferior aspect of the supraspinatus tendon and muscle. Inta ct infraspinatus tendon. Intact Subscapularis tendon. Rotator cuff muscle bulk is preserved. Acromioclavicular Joint: No significant spurring or narrowing. Glenohumeral Joint: Small to moderate-sized joint effusion extending superiorly. Labrum: The labrum appears grossly intact given limitation of non-arthrogram study. Biceps Tendon: The long head of biceps is in normal location within bicipital groove. Bone marrow signal: Subchondral cystic change involving the lateral aspect of the humeral head. Other: No additional significant abnormality is appreciated. IMPRESSION: 1. Tendinosis/partial tearing of the supraspinatus tendon. No labral tear.
== END | disposition home or self-care (01) ==
LOC: RADMRIMAIN 19:15
PROVIDERS: ATTEND Orthopaedic Surgery
DX: M75.112 Incomplete rotator cuff tear or rupture of left shoulder, not specified as traumatic (principal)

== ENCOUNTER 2024-04-15 07:13 | Day surgery (SDC) | payer BC ==
--- NOTE | 2024-04-15 00:04 | HP ---
HISTORY AND PHYSICAL DATE OF SURGERY: 04/15/2024. HISTORY OF PRESENT ILLNESS: Gregg Olsen is a 68-year-old gentleman seen with progressive left shoulder pain. We discussed options regarding treatment. He elected to proceed with left shoulder arthroscopy. Consent regarding the procedure was obtained. Medical clearance was provided. PAST MEDICAL HISTORY: Hypertension, insulin-dependent diabetes, and hyperlipidemia. PAST SURGICAL HISTORY: Noncontributory. DAILY MEDICATIONS: 1. Amlodipine. 2. Aspirin. 3. Lantus insulin. 4. Lisinopril. 5. Simvastatin. ALLERGIES: None. SOCIAL HISTORY: Denies tobacco use. PHYSICAL EVALUATION OF THE LEFT SHOULDER: Flexion is 150 degrees. Abduction is 120 degrees. External rotation is 40 degrees with pain and weakness. Tenderness along the anterolateral acromion and bicipital groove as well as rotator cuff tendon and proximal biceps tendon. Impingement is positive at 90 degrees. Cross-body adduction sign is positive. Drop-arm sign is positive. Distal neurovascular exam is intact. IMAGING STUDIES: Left shoulder radiographs revealed a type 2 acromion along with cystic changes of the greater tuberosity. MRI left shoulder revealed a rotator cuff tendon tear along with effusion. IMPRESSION: 1. Left shoulder impingement with rotator cuff tear. 2. Left shoulder bicipital tendinitis. 3. Hypertension. 4. Hyperlipidemia. 5. Insulin-dependent diabetes. PLAN: Left shoulder arthroscopy, subacromial decompression, arthroscopic rotator cuff repair, biceps tenodesis, and debridement. MMRAZIAL / IJN: [id number] /
[2024-04-15] MEDS: IV FLUID CONTINUATION 1,000 ML IV ONE (07:42)
[2024-04-15] MEDS ORDERED: LIDOCAINE 1% (10MG/ML) FOR IV START INTRADERMA PRN (07:43)
[2024-04-15] MEDS ORDERED: HYDROmorphone 0.5 MG/0.5 ML SYRINGE IVP PRN (07:43)
[2024-04-15 08:16] LABS: Glucose,Whole Blood 106 mg/dL (70-110)
[2024-04-15] MEDS: ONDANSETRON 4 MG/2 ML VIAL IVP ONE (08:26)
[2024-04-15] MEDS: LACTATED RINGERS 1,000 ML IV SCH (08:26)
[2024-04-15] MEDS: DEXAMETHASONE SOD PHOSPHATE 4 MG/ML 1 ML VIAL IV ONE (08:27)
--- NOTE | 2024-04-15 08:55 | P.ANPRN ---
Procedure Note - Anesthesia - Nerve Block Performed Left Interscalene Single Time Out Performed: Yes ([id number]) Date of Procedure: 04/15/24 Procedure Start Time: 08:36 Procedure Stop Time: 08:41 Location of Patient: PreOp Indication: Acute Post-Operative Pain, Requested by Surgeon Specifically requested for management of pain by DrGuicho: Lucio Trevino Sedation Type: Sedate with meaningful contact maintained Preparation: Sterile Prep Position: Supine Catheter: None Needle Types: Pajunk Needle Gauge: 21 Ultrasound used to visualize needle placement: Yes Ultrasound used to observe medication spread: Yes Injectate: 0.5% Ropivacaine (see comment for volume) (30cc) Blood Aspirated: No Pain Paresthesia on Injection Noted: No Resistance on Injection: Normal Image Stored and Saved: Yes Events: Uneventful and Well Tolerated
[2024-04-15 09:02] VITALS: RESP 16
[2024-04-15] MEDS: MIDAZOLAM 2 MG/2 ML VIAL IV STA (09:04)
[2024-04-15] MEDS ORDERED: KETOROLAC 15 MG/ML 1 ML VIAL ONE (09:05)
[2024-04-15] MEDS ORDERED: NEOSTIGMINE 1 MG/ML 10 ML VIAL ONE (09:05)
[2024-04-15] MEDS ORDERED: ROCURONIUM 10 MG/ML (5 ML VIAL) IV ONE (09:05)
[2024-04-15] MEDS ORDERED: MIDAZOLAM 2 MG/2 ML VIAL ONE (09:05)
[2024-04-15] MEDS ORDERED: GLYCOPYRROLATE 0.2 MG/ML 2 ML VIAL ONE (09:05)
[2024-04-15] MEDS: fentaNYL (PF) 50 MCG/ML 2 ML AMP IVP STA (09:05)
[2024-04-15] MEDS ORDERED: PHENYLEPHRINE 10 MG/ML VIAL ONE (09:05)
[2024-04-15] MEDS ORDERED: ROPIVACAINE 5 MG/ML 30 ML VIAL ONE (09:05)
[2024-04-15] MEDS ORDERED: fentaNYL (PF) 50 MCG/ML 2 ML AMP ONE (09:05)
[2024-04-15] MEDS ORDERED: PROPOFOL 10 MG/ML 20 ML VIAL IV ONE (09:05)
[2024-04-15] MEDS ORDERED: LIDOCAINE 1% INJ 10MG/ML (20 ML MDV) ONE (09:05)
[2024-04-15] MEDS: LACTATED RINGERS 1,000 ML IV ONE (09:50)
--- NOTE | 2024-04-15 10:28 | P.OP ---
Date of Procedure: 04/15/24 Preoperative Diagnosis: Left shoulder impingement Postoperative Diagnosis: 1. Left shoulder rotator cuff tear 2. Left shoulder impingement 3. Left shoulder partial long head biceps tendon tear 4. Left shoulder acromioclavicular joint osteoarthritis 5. Left shoulder superficial labral tear Procedure(s) Performed: 1. Left shoulder arthroscopic rotator cuff repair 2. Left shoulder arthroscopic subacromial decompression 3. Left shoulder arthroscopic biceps tenodesis 4. Left shoulder arthroscopic Simran procedure 5. Left shoulder arthroscopic debridement labral tear Implants: 2Arthrex 4.75 swivel lock anchors Anesthesia: GETA, regional (Interscalene block) Surgeon: Lucio Trevino Hearing Aid Technician #1: John Murphy Estimated Blood Loss (ml): 6 Pathology: none sent Condition: stable Disposition: PACU Indications for Procedure: 68-year-old gentleman seen with progressive left shoulder pain. After having treatment options discussed, he elected to proceed with arthroscopy. Operative Findings: See description of procedure Description of Procedure: Patient underwent an interscalene block by department of anesthesia. The patient was then taken to the operative suite. The patient underwent a general anesthetic by the department of anesthesia. The patient was placed into a lateral position and secured. There was appropriate padding of the bony prominence. Left shoulder was then prepped and draped in normal sterile orthopedic fashion. We placed the extremity in 10 pounds of longitudinal traction. A posterior incision was now made for a posterior working portal site. The trocar and cannula were inserted into the glenohumeral joint. Arthroscopy was initiated. Spinal needle was now inserted anteriorly, to ascertain the anterior working portal site. An incision was now made in that area, a trocar was inserted followed by a probe. There was superficial tearing of the superior labrum. There was some partial tearing long head biceps tendon. There were very mild grade I chondromalacia changes of the anterior glenoid. The remaining labrum was stable. I debrided out the superficial labral tear with a motorized shaver. I introduced the cannula through the anterior portal site. I passed a loop and tack type stitch to the biceps tendon for biceps tenodesis. I now released the biceps from the superior labral anchor. With the assistance of Mychal BOWLING partial hole at the interval for insertion of an anchor. The suture limb was passed through the eyelet of an Arthrex 4.75 swivel lock anchor. I placed the eyelet into the preplanned hole. I held it in position while Mychal BOWLING tensioned the suture and deployed the anchor with good fixation noted. We had a stable appearing biceps tenodesis. Instruments were now removed from the glenohumeral joint. Utilizing the posterior working portal site, the trocar and cannula were inserted into the subacromial space. Arthroscopy initiated. I made an incision 2 fingerbreadths lateral to the acromion. I introduced my trocar followed by my ArthroCare ablator. I now began ablating thick subacromial bursal tissue, which exposed the undersurface of the anterior acromion. There was diminished subacromial space. There was a very prominent anterior acromion. A motorized bur was introduced and a subacromial decompression was performed. I also excised some osteophytes off the inferior aspect of the distal clavicle. The AC joint was visualized and noted to be fairly arthritic. The motorized bur was introduced in the anterior portal site and a Simran procedure was performed wit hout difficulty removing 8 mm of bone at the distal clavicle, decompressing the AC joint nicely. I turned my attention to the rotator cuff. There was a 1 cm rotator cuff tear. I debrided the margins getting down to stable tendon tissue. I abraded the footprint with a motorized bur. With the assistance of Mychal BOWLING I passed 2 inverted mattress sutures through good bites of rotator cuff tendon. I punched a hole in the footprint area for insertion of an anchor. All 4 limbs of suture were passed through the eyelet of an Arthrex 4.75 swivel lock anchor. I now placed the eyelet into the prepunched a hole. I held in position while Mychal BOWLING tensioned the sutures and deployed the anchor with good fixation noted. The residual suture limbs were clipped. We had a stable repair with good compression of the tendon on the footprint. Instruments now removed from the portal sites. All portal sites were approximated with nylon suture. Sterile dressings were applied followed by a shoulder sling. John BOWLING assisted in this complex case. The patient was awakened, transferred to a bed, and taken to recovery in stable condition.
[2024-04-15 10:29] VITALS: TEMP 97
[2024-04-15 11:26] VITALS: BP 115/71; PULSE 87
== END 2024-04-15 11:51 | disposition home or self-care (01) ==
LOC: OR 07:13
PROVIDERS: ATTEND Orthopaedic Surgery
DX: S46.012A Strain of muscle(s) and tendon(s) of the rotator cuff of left shoulder, initial encounter (principal); M19.012 Primary osteoarthritis, left shoulder; M75.22 Bicipital tendinitis, left shoulder; F17.200 Nicotine dependence, unspecified, uncomplicated; I10 Essential (primary) hypertension; E78.5 Hyperlipidemia, unspecified; E11.9 Type 2 diabetes mellitus without complications; Z91.041 Radiographic dye allergy status; Z79.4 Long term (current) use of insulin; Z79.82 Long term (current) use of aspirin; Z79.899 Other long term (current) drug therapy; X58.XXXA Exposure to other specified factors, initial encounter
CPT/HCPCS: 64415; 29824; 29826; 29827; 29828; C1713 ×2; J2250; J1100; J2710; J0690; J2405; J2003; J3010; J2795; J1885; J2704; J2371; J1596